=== PATIENT | male | born 1955 | race Two or more races ===

== ENCOUNTER → 2019-03-24 | Outpatient (CLI) | payer OTHER ==
[~2019-03-24] MED LIST: AMLODIPINE-BEN1 EAC3 PO; ASPIRIN81 M1 PO; AVODART0.5 MG PO; CRESTOR10 MG PO; FINASTERIDE5 MG PO; FISH OIL PO; LIPITOR; LIPITOR10 MG PO; LIPITOR20 MG PO
--- NOTE | 2019-03-24 21:43 | Diagnostic Imaging Report ---
Meckel's Scan Reason for exam: Repeated episodes of rectal bleeding over past 10 years. Radiopharmaceutical: Tc-99m pertechnetate 10 mCi IV Report: After administration of the radiopharmaceutical, dynamic images of the abdomen and pelvis in the anterior projection were obtained through 60 minutes. Distribution of tracer activity appears physiologic throughout the abdomen and pelvis. No focal abnormality is identified nor is there any focal uptake of tracer that appears to intensify over time. Impression: No scan evidence of ectopic gastric mucosa. Signed by: Dr. Emma Desir M.D. on 03/24/2019 9:39 PM
== END ==
LOC: NM 10:08
PROVIDERS: ATTEND Internal Medicine Gastroenterology
DX: K62.5 Hemorrhage of anus and rectum (principal)
CPT/HCPCS: 78290; A9512

== ENCOUNTER 2022-11-05 09:00 | Outpatient (RCR) | payer MEDICARE ==
[~2022-11-05 09:00] MED LIST changes: +BENAZEPRIL HCL20 MG PO; +FLOMAX0.4 MG PO; +JANUVIA50 MG PO; +LEVOTHYROXINE50 MCG PO; +MULTI-VITAMIN1 EACH PO; +PREDNISONE20 MG PO
== END 2022-11-06 17:13 | disposition home or self-care (01) ==
LOC: PT 09:00
PROVIDERS: ATTEND Physician Assistant
DX: M75.81 Other shoulder lesions, right shoulder (principal); M75.41 Impingement syndrome of right shoulder